=== PATIENT | male | born 1950 | race Asian ===

== ENCOUNTER 2020-05-16 11:12 | Emergency (ER) | payer OTHER, MEDICAID ==
[~2020-05-16] VITALS: Ht 170.2 cm; Wt 77.1 kg
[2020-05-16 11:19] VITALS: Ht 170.2 cm; Wt 77.1 kg
[2020-05-16 12:19] LABS: BASOPHIL % 0.6 % (0-2); PLATELET COUNT 148 x10^3mcL (130-400); RED CELL DISTRIBUTION WIDTH 13.3 % (11.5-14.5)
[2020-05-16 12:34] LABS: CALCIUM 8.6 mg/dL (8.5-10.1); CARBON DIOXIDE 28.3 mmol/L (21-32); CHLORIDE SERUM 107 mmol/L (98-107); CREATININE SERUM 1.2 mg/dL (0.7-1.3); GFR1 > 60 mL/min; GLUCOSE SERUM 100 mg/dL (74-106); POTASSIUM SERUM 4.5 mmol/L (3.5-5.1); SODIUM SERUM 140 mmol/L (136-145)
[2020-05-16 12:38] LABS: ALBUMIN 3.5 g/dL (3.4-5.0); ALKALINE PHOSPHATASE 57 U/L (46-116); ALT/SGPT 30 U/L (16-63); AST/SGOT 29 U/L (15-37); BILIRUBIN TOTAL 0.9 mg/dL (0.20-1.00); CHOLESTEROL 167 mg/dL (<200); HDL CHOLESTEROL 49 mg/dL (40-60); LIPASE 104 IU/L (73-393); MAGNESIUM 2.2 mg/dL (1.8-2.4); TOTAL PROTEIN, SERUM 6.9 g/dL (6.4-8.2)
[2020-05-16 13:25] VITALS: BP 113/76
== END 2020-05-16 13:50 | disposition short-term general hospital (02) ==
LOC: ED 11:12
PROVIDERS: Emergency Medicine
DX: I24.9 Acute ischemic heart disease, unspecified (principal); Q21.2 Atrioventricular septal defect
CPT/HCPCS: 82962; 83880; J2997; Q0092